=== PATIENT | female | born 1990 | race African-American/Black ===

== ENCOUNTER 2019-08-17 09:41 | Emergency (ER) | payer SELFPAY ==
[2019-08-17 09:59] VITALS: TEMP 98.5; BMI 30.1
[2019-08-17] MEDS ORDERED: SODIUM CHLORIDE 1,000 ML IV STA (11:14)
[2019-08-17] MEDS ORDERED: diazePAM CARPU-JECT 10 MG/2 ML DISP.SYRIN IVPUSH ONE (11:15)
--- NOTE | 2019-08-17 11:20 | PDOC ---
History of Present Illness - General Chief Complaint: Psychiatric Stated Complaint: ANXIETY Time Seen by Provider: 08/17/19 10:59 History Source: Patient - History of Present Illness Timing/Duration: other (this am) Past History - Past Medical History Allergies/Adverse Reactions: Allergies Allergy/AdvReac Type Severity Reaction Status Date / Time Latex, Natural Rubber Allergy Verified 08/17/19 09:59 Home Medications: Ambulatory Orders Chlordiazepoxide [Librium -] 50 mg PO ONCE #2 capsule MDD 2 capsule 08/17/19 Asthma: No Cancer: No Cardiac Disorders: No COPD: No Diabetes: No HTN: No Seizures: No Thyroid Disease: No - Reproductive History (#): 1 Para: 0 Cervical CA: No Dysfunctional Uterine Bleeding: No Ectopic : No Endometrial CA: No Polycystic Ovaries: No Therapeutic (s) & number: No Tubal Ligation: No - Immunization History Immunization Up to Date: Yes - Suicide/Smoking/Psychosocial Hx Smoking History: Never smoked Have you smoked in the past 12 months: No Number of Cigarettes Smoked Daily: 0 Information on smoking cessation initiated: No Hx Alcohol Use: No Drug/Substance Use Hx: No Substance Use Type: None Hx Substance Use Treatment: No Review of Systems - Review of Systems Constitutional: No: Chills, Fever Respiratory: Yes: Shortness of Breath. No: Cough Cardiac (ROS): No: Chest Pain, Palpitations, Syncope ABD/GI: No: Nausea, Vomiting, Abdominal cramping : No: Dysuria Neurological: Yes: Dizziness. No: Headache, Numbness, Tingling, Weakness *Physical Exam - Vital Signs Last Vital Signs Temp Pulse Resp BP Pulse Ox 98.5 F 109 H 19 129/90 98 08/17/19 09:57 08/17/19 09:57 08/17/19 09:57 08/17/19 09:57 08/17/19 09:57 - Physical Exam Comments: 08/17/19 11:24 appears anxious and tremulous in facility HEENT: positive: Normal Voice Respiratory/Chest: positive: Lungs Clear, Normal Breath Sounds. negative: Respiratory Distress Cardiovascular: positive: S1, S2, Tachycardia Gastrointestinal/Abdominal: positive: Soft. negative: Tender Integumentary: positive: Dry, Warm Neurologic: positive: Fully Oriented, Alert ED Treatment Course - LABORATORY CBC & Chemistry Diagram: 08/17/19 11:30 08/17/19 11:30 Medical Decision Making - Medical Decision Making 08/17/19 11:17 29 yo F, h/o HTN, non-compliant w/ meds, here w/ tremors, sob, dizziness and "stiff hands" upon awakening this am. Sxs since improved. No CP, diaphoresis, n/ v. No obvious RF for DVT/PE. No h/o similar episode. Denies illicit drug use. No known psych hx. Pt does report drinking excessively last night and appears very vague regarding how often she actually drinks alcohol. see exam Suspect possible ETOH withdrawal vs anxiety Last ETOH intake last night Tachy and tremulous here -IVF -dose of benzo -labs -reassess 08/17/19 12:58 Labs remarkable for ETOH lvl of 175 and + marijuana. Pt feels better on reassessment w/ improved HR but states " I still don't feel right". Case d/w Dr Sumner who rec dose of librium here and dc w/ small dose and encourage detox 08/17/19 13:53 Pt states she feels well enough to be discharged. Had lengthy conversation w/ pt regarding concerns for possible ETOH abuse. Pt offered detox and currently declines. Given referral for [facility]. Strict return precautions given *DC/Admit/Observation/Transfer Diagnosis at time of Disposition: Dizziness, Tremor, ETOH abuse - Discharge Dispostion Disposition: HOME Condition at time of disposition: Improved - Prescriptions Prescriptions: Chlordiazepoxide [Librium -] 50 mg PO ONCE #2 capsule MDD 2 capsule - Referrals Referrals: Eula Cheng [Primary Care Provider] - - Patient Instructions Printed Discharge Instructions: DI for Alcohol Abuse Additional Instructions: We are concerned that your symptoms may be related to excessive alcohol use Please follow up at our detox facility at: [facility] in [place], [place] Address: [place] [address] Return to ED for worsening of symptoms - Post Discharge Activity
[2019-08-17] MEDS ORDERED: diazePAM CARPU-JECT 10 MG/2 ML DISP.SYRIN ONE (11:32)
[2019-08-17 11:41] LABS: BASO % 1.3 % (0-2.0); EOS % 0.1 % (0-4.5); HEMATOCRIT 39.1 % (32.4-45.2); HEMOGLOBIN 12.7 GM/dL (10.7-15.3); LYMPH % 17.9 % (8-40); MCH 30.5 pg (25.7-33.7); MCHC 32.6 g/dl (32.0-36.0); MEAN CELL VOLUME 93.7 fl (80-96); MEAN PLT VOLUME 7.3 fl (7.5-11.1); MONO % 5.3 % (3.8-10.2); NEUT % 75.4 % (42.8-82.8); PLATELET COUNT 340 K/MM3 (134-434); RBC 4.17 M/mm3 (3.60-5.2); RDW 13.7 % (11.6-15.6); WHITE BLOOD COUNT 4.9 K/mm3 (4.0-10.0)
[2019-08-17 11:48] LABS: COCAINE, UR NEGATIVE ng/ml (CUTOFF=300); METHADONE, UR NEGATIVE ng/ml (CUTOFF=300); OPIATES, URI NEGATIVE ng/ml (CUTOFF=300); PHENCYCLIDINE,URINE NEGATIVE ng/ml (CUTOFF=25); URINE AMPHETAMINES NEGATIVE ng/ml (CUTOFF=500); URINE BARBITURATES NEGATIVE ng/ml (CUTOFF=200); URINE BENZODIAZEPINES NEGATIVE ng/ml (CUTOFF=200)
[2019-08-17 12:05] LABS: ALBUMIN 4.1 g/dl (3.4-5.0); BILIRUBIN,TOTAL 0.3 mg/dL (0.2-1); BLOOD UREA NITROGEN 11.2 mg/dL (7-18); CALCIUM 8.8 mg/dL (8.5-10.1); CREATININE 0.7 mg/dL (0.55-1.3); POTASSIUM 3.5 mmol/L (3.5-5.1); TOT PROT 8.2 g/dl (6.4-8.2)
[2019-08-17 12:51] VITALS: BP 132/90; PULSE 99
[2019-08-17] MEDS ORDERED: chlordiazePOXIDE HCL 25 MG CAPSULE PO ONE (12:58)
[2019-08-17] MEDS ORDERED: chlordiazePOXIDE HCL 25 MG CAPSULE ONE (13:03)
--- NOTE | 2019-08-17 15:09 | EKG ---
Test Reason : Blood Pressure : / mmHG Vent. Rate : 095 BPM Atrial Rate : 095 BPM P-R Int : 128 ms QRS Dur : 096 ms QT Int : 374 ms P-R-T Axes : 077 024 015 degrees QTc Int : 469 ms NORMAL SINUS RHYTHM INCOMPLETE RIGHT BUNDLE BRANCH BLOCK BORDERLINE ECG WHEN COMPARED WITH ECG OF 12-JAN-2017 12:27, NO SIGNIFICANT CHANGE WAS FOUND Confirmed by FRANCIA CHAPA, VIKKI ([id number]) on 08/17/2019 3:08:52 PM Referred By: Confirmed By:VIKKI FELDMAN MD
== END 2019-08-17 13:58 | disposition home or self-care (01) ==
LOC: JERFT 09:41
PROC: 3E033NZ Introduction of Analgesics, Hypnotics, Sedatives into Peripheral Vein, Percutaneous Approach (ICD-10-PCS; principal; 2019-08-17)
DX: F10.10 Alcohol abuse, uncomplicated (principal); F41.9 Anxiety disorder, unspecified; I10 Essential (primary) hypertension; Z91.14 Patient's other noncompliance with medication regimen
CPT/HCPCS: 36415; 80053; 80307; 84443; 84703; 85025; 93005; 93010; 99282-25; J7030

== ENCOUNTER 2021-10-13 17:56 | Emergency (ER) | payer OTHER ==
[2021-10-13 18:14] VITALS: BP 117/80; PULSE 79; TEMP 97.8; BMI 28.3
[2021-10-13] MEDS ORDERED: SODIUM CHLORIDE 1,000 ML IV STA (19:53)
[2021-10-13] MEDS ORDERED: ACETAMINOPHEN 1000 MG/100 ML VIAL IVPB ONE (19:53)
[2021-10-13] MEDS ORDERED: ACETAMINOPHEN INJECTION 100 ML IVPB ONE (21:00)
[2021-10-13 21:03] LABS: BASO % 1.7 % (0-2.0); EOS % 0.6 % (0-4.5); HEMATOCRIT 41.6 % (32.4-45.2); HEMOGLOBIN 13.7 GM/dL (10.7-15.3); LYMPH % 28.5 % (8-40); MCH 31.7 pg (25.7-33.7); MCHC 33.1 g/dl (32.0-36.0); MEAN CELL VOLUME 95.9 fl (80-96); MEAN PLT VOLUME 8.3 fl (7.5-11.1); MONO % 7.4 % (3.8-10.2); NEUT % 61.8 % (42.8-82.8); PLATELET COUNT 424 10^3/uL (134-434); RBC 4.34 M/mm3 (3.60-5.2); WHITE BLOOD COUNT 5.2 K/mm3 (4.0-10.0)
[2021-10-13 21:08] LABS: EPI CELLS 11 /uL (0-25.1); HCG,QUALITATIVE URINE Negative; HYALINE CASTS 1 /uL (0-3.1); PH,URINE 5.5 (5.0-8.0); URINE APPEARANCE CLEAR; URINE BACTERIA 66 /uL (0-1359); URINE BILIRUBIN NEGATIVE (NEGATIVE); URINE COLOR YELLOW; URINE GLUCOSE (UA) NEGATIVE (NEGATIVE); URINE KETONE TRACE (NEGATIVE); URINE LEUK ESTERASE TRACE (NEGATIVE); URINE NITRITE NEGATIVE (NEGATIVE); URINE PROTEIN NEGATIVE (NEGATIVE); URINE RBC 1 /uL (0-23.9); URINE WBC 9 /uL (0-25.8)
[2021-10-13 21:09] LABS: INR 1.19 (0.83-1.09)
[2021-10-13 21:21] LABS: ALBUMIN 3.5 g/dl (3.4-5.0); BLOOD UREA NITROGEN 6.1 mg/dL (7-18)
[2021-10-13 21:24] LABS: CREATININE 0.7 mg/dL (0.55-1.3)
[2021-10-13 21:26] LABS: BILIRUBIN,TOTAL 0.4 mg/dL (0.2-1); TOT PROT 8.4 g/dl (6.4-8.2)
[2021-10-13] MEDS ORDERED: KETOROLAC TROMETHAMINE 15 MG/ML VIAL ONE (23:02)
[2021-10-13] MEDS ORDERED: KETOROLAC TROMETHAMINE 15 MG/ML VIAL IVPUSH ONE (23:05)
== END 2021-10-13 23:11 | disposition home or self-care (01) ==
LOC: JER 17:56
PROC: 3E033NZ Introduction of Analgesics, Hypnotics, Sedatives into Peripheral Vein, Percutaneous Approach (ICD-10-PCS; principal; 2021-10-13)
PROC: 3E0333Z Introduction of Anti-inflammatory into Peripheral Vein, Percutaneous Approach (ICD-10-PCS; 2021-10-13)
PROC: 3E0337Z Introduction of Electrolytic and Water Balance Substance into Peripheral Vein, Percutaneous Approach (ICD-10-PCS; 2021-10-13)
DX: R10.31 Right lower quadrant pain (principal); K65.9 Peritonitis, unspecified
CPT/HCPCS: 36415; 74177-TC; 80053; 81003; 84703; 85025; 85610; 86850; 86900; 86901; 87086; 99285-25; J0131; Q9967